=== PATIENT | male | born 1935 | race African-American/Black ===

== ENCOUNTER 2018-05-21 21:49 | Emergency (ER) | payer MEDICARE, OTHER ==
[~2018-05-21] VITALS: Ht 163.8 cm; Wt 63.5 kg
[2018-05-21 22:30] VITALS: BP 99/70
[2018-05-21] MEDS ORDERED: Sodium Chloride 500ML 500 ML IV ONE (22:30)
[2018-05-21 22:59] LABS: BASOPHILS % (AUTO) 0.4 % (0.0-2.0); EOSINOPHILS % (AUTO) 1.7 % (0.0-3.0); HEMATOCRIT 39.1 % (42.0-52.0); HEMOGLOBIN 13.4 G/DL (14.2-18.0); LYMPHOCYTES % (AUTO) 23.2 % (20.0-45.0); MEAN CORPUSCULAR VOLUME 88 FL (80-99); NEUTROPHILS % (AUTO) 65.7 % (45.0-75.0); PLATELET COUNT 232 K/UL (150-450); RED BLOOD COUNT 4.43 M/UL (4.70-6.10); RED CELL DISTRIBUTION WIDTH 11.3 % (11.6-14.8); WHITE BLOOD COUNT 5.3 K/UL (4.8-10.8)
[2018-05-21 23:08] LABS: ANION GAP 6 mmol/L (5-15); BLOOD UREA NITROGEN 23 mg/dL (7-18); CALCIUM 9.5 MG/DL (8.5-10.1); CARBON DIOXIDE 28 MMOL/L (21-32); CHLORIDE 104 MMOL/L (98-107); CREATININE 1.2 MG/DL (0.55-1.30); POTASSIUM 3.5 MMOL/L (3.5-5.1); SODIUM 138 MMOL/L (136-145)
[2018-05-21 23:18] LABS: ALANINE AMINOTRANSFERASE 35 U/L (12-78); ALBUMIN 3.6 G/DL (3.4-5.0); ALBUMIN/GLOBULIN RATIO 1.1 (1.0-2.7); ALKALINE PHOSPHATASE 65 U/L (46-116); ASPARTATE AMINO TRANSFERASE 55 U/L (15-37)
[2018-05-21 23:32] LABS: APPEARANCE,URINE CLEAR; BILIRUBIN, URINE 1+ (NEGATIVE); GLUCOSE, URINE (UA) NEGATIVE (NEGATIVE); KETONES,URINE NEGATIVE (NEGATIVE); LEUKOCYTE ESTERASE ,URINE 1+ (NEGATIVE); NITRITE,URINE NEGATIVE (NEGATIVE); PH,URINE 5 (4.5-8.0); PROTEIN,URINE 1+ (NEGATIVE); UROBILINOGEN,URINE NORMAL MG/DL (0.0-1.0)
[2018-05-21 23:37] LABS: COLOR,URINE YELLOW
[2018-05-21] MEDS ORDERED: CEPHALEXIN500 MG ORAL (23:41)
[2018-05-22 00:05] VITALS: BP 150/70
[2018-05-22 00:07] VITALS: BP 150/70
--- NOTE | 2018-05-22 00:13 | Emergency Room Report ---
History of Present Illness General Chief Complaint: Dizziness Source: Patient, Medical Record Present Illness HPI They she is 82-year-old male brought in by family member after increased dizziness and lightheadedness. The patient prior history of hypertension. He had been taking a alpha blockers for his prostate as well as beta barrett for for hypertension. The patient was noted to have increased dizziness with standing. He denied chest discomfort. He had not been having any fever. He reports having normal urination but it been having increased hesitancy. Allergies: Coded Allergies: No Known Allergies (Unverified , 05/21/18) Patient History Past Medical History: see triage record Reviewed Nursing Documentation: PMH: Agreed; PSxH: Agreed Nursing Documentation-PMH Past Medical History: No History, Except For Hx Hypertension: Yes Hx Diabetes: No Review of Systems All Other Systems: negative except mentioned in HPI Physical Exam Vital Signs Date Time Temp Pulse Resp B/P (MAP) Pulse Ox O2 Delivery O2 Flow Rate FiO2 05/21/18 21:54 97.6 76 19 99/70 95 Room Air 97.5 Sp02 EP Interpretation: reviewed, normal General Appearance: normal inspection, well appearing, no apparent distress, alert, GCS 15, non-toxic Head: atraumatic ENT: normal ENT inspection, hearing grossly normal, normal voice Neck: normal inspection, full range of motion, supple, no bony tend Respiratory: normal inspection, lungs clear, normal breath sounds, no respiratory distress, no retraction, no wheezing Cardiovascular #1: regular rate, rhythm, no edema Gastrointestinal: normal inspection, normal bowel sounds, non tender, soft, no guarding, no hernia Genitourinary: no CVA tenderness Musculoskeletal: normal inspection, back normal, normal range of motion Neurologic: normal inspection, alert, oriented x3, responsive, bundle wrapper III-XII nml as tested, speech normal Psychiatric: normal inspection, judgement/insight normal, mood/affect normal Skin: normal inspection, normal color, no rash Medical Decision Making Diagnostic Impression: Primary Impression: Urinary tract infection ER Course Patient presented for syncope. Differential diagnosis included but was not limited to arrhythmia, orthostatic hypotension, hypovolemia, vasovagal, anemia among others. Labs Test 05/21/18 22:45 05/21/18 23:23 White Blood Count 5.3 K/UL (4.8-10.8) Red Blood Count 4.43 M/UL (4.70-6.10) Hemoglobin 13.4 G/DL (14.2-18.0) Hematocrit 39.1 % (42.0-52.0) Mean Corpuscular Volume 88 FL (80-99) Mean Corpuscular Hemoglobin 30.3 PG (27.0-31.0) Mean Corpuscular Hemoglobin Concent 34.3 G/DL (32.0-36.0) Red Cell Distribution Width 11.3 % (11.6-14.8) Platelet Count 232 K/UL (150-450) Mean Platelet Volume 7.6 FL (6.5-10.1) Neutrophils (%) (Auto) 65.7 % (45.0-75.0) Lymphocytes (%) (Auto) 23.2 % (20.0-45.0) Monocytes (%) (Auto) 9.0 % (1.0-10.0) Eosinophils (%) (Auto) 1.7 % (0.0-3.0) Basophils (%) (Auto) 0.4 % (0.0-2.0) Sodium Level 138 MMOL/L (136-145) Potassium Level 3.5 MMOL/L (3.5-5.1) Chloride Level 104 MMOL/L (98-107) Carbon Dioxide Level 28 MMOL/L (21-32) Anion Gap 6 mmol/L (5-15) Blood Urea Nitrogen 23 mg/dL (7-18) Creatinine 1.2 MG/DL (0.55-1.30) Estimat Glomerular Filtration Rate mL/min (>60) Glucose Level 90 MG/DL (74-106) Calcium Level 9.5 MG/DL (8.5-10.1) Total Bilirubin 1.0 MG/DL (0.2-1.0) Aspartate Amino Transf (AST/SGOT) 55 U/L (15-37) Alanine Aminotransferase (ALT/SGPT) 35 U/L (12-78) Alkaline Phosphatase 65 U/L (46-116) Troponin I 0.013 ng/mL (0.000-0.056) Total Protein 7.0 G/DL (6.4-8.2) Albumin 3.6 G/DL (3.4-5.0) Globulin 3.4 g/dL Albumin/Globulin Ratio 1.1 (1.0-2.7) Urine Color Yellow Urine Appearance Clear Urine pH 5 (4.5-8.0) Urine Specific [place] 1.020 (1.005-1.035) Urine Protein 1+ (NEGATIVE) Urine Glucose (UA) Negative (NEGATIVE) Urine Ketones Negative (NEGATIVE) Urine Blood 2+ (NEGATIVE) Urine Nitrite Negative (NEGATIVE) Urine Bilirubin 1+ (NEGATIVE) Urine Ictotest Positive (NEGATIVE) Urine Urobilinogen Normal MG/DL (0.0-1.0) Urine Leukocyte Esterase 1+ (NEGATIVE) Urine RBC 2-4 /HPF (0 - 0) Urine WBC 2-4 /HPF (0 - 0) Urine Squamous Epithelial Cells Few /LPF (NONE/OCC) Urine Bacteria Few /HPF (NONE) Urine Hyaline Casts 0-2 /LPF (NONE) Urine Mucus Few /LPF (NONE/OCC) EKG Diagnostic Results Rate: bradycardiac - 57 Rhythm: NSR ST Segments: no acute changes Last Vital Signs Date Time Temp Pulse Resp B/P (MAP) Pulse Ox O2 Delivery O2 Flow Rate FiO2 05/22/18 00:07 97.5 78 23 150/70 98 Room Air 97.5 Status: improved Disposition: HOME, SELF-CARE Condition: Stable Scripts Cephalexin* (KEFLEX*) 500 Mg Capsule 500 MG ORAL EVERY 6 HOURS, #28 CAP Prov: Noam Harris MD 05/21/18 Referrals: NOT CHOSEN [facility]/,REFERRING (PCP) Patient Instructions: Noam White MD May 22, 2018 00:13
--- NOTE | 2018-05-22 15:05 | Cardiology Report ---
APPROVED REPORT EKG Measurement Heart [id number] Sinus bradycardia Otherwise normal ECG
== END 2018-05-22 00:08 | disposition home or self-care (01) ==
LOC: EMR 22:28
DX: N39.0 Urinary tract infection, site not specified (principal); I10 Essential (primary) hypertension
CPT/HCPCS: 36415; 80053; 81003; 84484; 85025; 93005; 99284

== ENCOUNTER 2019-05-12 22:15 | Emergency (ER) | payer MEDICAID, MEDICARE ==
[~2019-05-12] VITALS: Ht 162.6 cm; Wt 63.5 kg
[~2019-05-12 22:15] MED LIST: CEPHALEXIN500 MG ORAL
[2019-05-12 22:35] VITALS: BP 139/78
--- NOTE | 2019-05-12 22:35 | NUR ---
ED Nurse Note: Patient walked into ED due to lower abdominal pain, states that his pain intermittently comes back and forth, started yesterday. Has hx of HTN and is non compliant with his medications. Alert and oriented, verbally responsive. Breathing even and unlabored. VSS.
[2019-05-12] MEDS ORDERED: Isovue-300 100ml vial INJ PRN (23:15)
[2019-05-12 23:32] LABS: BASOPHILS % (AUTO) 0.5 % (0.0-2.0); EOSINOPHILS % (AUTO) 0.4 % (0.0-3.0); HEMATOCRIT 39.3 % (42.0-52.0); HEMOGLOBIN 13.8 G/DL (14.2-18.0); LYMPHOCYTES % (AUTO) 12.6 % (20.0-45.0); MEAN CORPUSCULAR VOLUME 90 FL (80-99); MONOCYTES % (AUTO) 5.7 % (1.0-10.0); NEUTROPHILS % (AUTO) 80.8 % (45.0-75.0); PLATELET COUNT 291 K/UL (150-450); RED BLOOD COUNT 4.34 M/UL (4.70-6.10); RED CELL DISTRIBUTION WIDTH 11.6 % (11.6-14.8); WHITE BLOOD COUNT 10.9 K/UL (4.8-10.8)
[2019-05-12 23:43] LABS: ANION GAP 8 mmol/L (5-15); BLOOD UREA NITROGEN 17 mg/dL (7-18); CALCIUM 9.2 MG/DL (8.5-10.1); CARBON DIOXIDE 30 MMOL/L (21-32); CHLORIDE 105 MMOL/L (98-107); CREATININE 1.2 MG/DL (0.55-1.30); SODIUM 143 MMOL/L (136-145)
[2019-05-12 23:47] LABS: ALANINE AMINOTRANSFERASE 18 U/L (12-78); ALBUMIN 3.6 G/DL (3.4-5.0); ALKALINE PHOSPHATASE 69 U/L (46-116); ASPARTATE AMINO TRANSFERASE 19 U/L (15-37); BILIRUBIN,TOTAL 0.8 MG/DL (0.2-1.0)
[2019-05-13 00:11] LABS: APPEARANCE,URINE CLEAR; BILIRUBIN, URINE NEGATIVE (NEGATIVE); GLUCOSE, URINE (UA) NEGATIVE (NEGATIVE); KETONES,URINE NEGATIVE (NEGATIVE); LEUKOCYTE ESTERASE ,URINE 2+ (NEGATIVE); NITRITE,URINE NEGATIVE (NEGATIVE); PH,URINE 5 (4.5-8.0); PROTEIN,URINE 1+ (NEGATIVE); UROBILINOGEN,URINE NORMAL MG/DL (0.0-1.0)
[2019-05-13 00:16] LABS: COLOR,URINE YELLOW
--- NOTE | 2019-05-13 00:24 | NUR ---
ED Nurse Note: Went down for CT.
--- NOTE | 2019-05-13 00:45 | NUR ---
ED Nurse Note: Came back from CT.
[2019-05-13 01:08] VITALS: BP 140/81
--- NOTE | 2019-05-13 01:47 | Diagnostic Imaging Report ---
Indication: Abdominal pain Technique: Continuous helical transaxial imaging of the abdomen and pelvis was obtained from the lung bases to the pubic symphysis during intravenous contrast administration. Coronal 2-D reformats were also obtained. Study obtained in a Siemens sensation [address] Automatic Exposure Control was utilized. Total Dose length Product (DLP): 754.[address] Dose Index Volume (CTDIvol): 16.38 mGy Comparison: None Findings: There is mild posterior basal atelectasis and/or scarring. The anterior wall the stomach appears abnormal. While most of the stomach wall appears thickened, there is a area of the focal protuberance of the stomach lumen extending anteriorly which has a thin wall. This may be a large gastric diverticulum. Ulceration is a consideration as well as ulcerative tumor. The stomach is nondistended. No oral contrast was given. Further evaluation with the endoscopy is highly recommended. There is also reticulation involving the omentum and anterior aspect of the mesentery. This may be due to inflammation. There is no free air identified. There is no free fluid or abscess identified. Gallbladder is contracted. There is a large cyst in the left kidney measuring 7 cm. Bilateral smaller renal cysts are noted. There is a splenic cyst measuring 2.6 cm. Aortoiliac calcifications are present. The appendix is normal. There are diverticula within the colon. Gas pattern is nonobstructive. Gallbladder is contracted. The liver is unremarkable. Pancreas is unremarkable. Prostate is enlarged measuring 5.8 x 5.8 x 6.5 cm. There is narrowing of intervertebral discs and accompanying endplate osteophyte formation. Hypertrophied facet joints also demonstrated.. IMPRESSION: Abnormal appearance of the stomach with the prominent anterior thin-walled focus of either ulceration, gastric diverticulum or tumor suspected. Further evaluation of this is recommended with endoscopy. Thickening of the gastric wall also demonstrated elsewhere may be indicative of gastritis. No evidence of perforation. Mesenteric stranding involving the omentum, nonspecific but could be a sign of inflammation. Renal cysts. Splenic cyst Atherosclerotic vascular disease Basilar atelectasis and/or fibrosis. Diverticulosis of the colon. Prostate hypertrophy Spondylosis There is a significant discrepancy with the preliminary reading by statrad. The final results and recommendations were conveyed to the emergency department, Dr. Klein at 10:11 am, 05/13/19. The CT scanner at [facility] is accredited by the [employer] and the scans are performed using dose optimization techniques as appropriate to a performed exam including Automatic Exposure control.
[2019-05-13 03:10] VITALS: BP 138/70
--- NOTE | 2019-05-13 03:10 | NUR ---
ED Nurse Note: Patient seen sleeping in bed. Breathing even and unlabored. Afebrile. Denies any pain at this time. VSS. Family member at bedside.
[2019-05-13] MEDS ORDERED: AMLODIPINE BESY10 MG ORAL (03:25)
[2019-05-13] MEDS ORDERED: TERAZOSIN HCL1 MG ORAL (03:26)
--- NOTE | 2019-05-13 04:00 | Emergency Room Report ---
History of Present Illness General Chief Complaint: Abdominal Pain Source: Patient Present Illness HPI 83-year-old male presents ED for evaluation. Complaining of abdominal pain. Pain is epigastric, dull, 8 out of 10, nonradiating. Started yesterday. States it was worse initially but less at this time. Denies chest pain or shortness of breath. Denies fevers or chills. Denies diarrhea. Denies nausea or vomiting. No other aggravating relieving factors. Denies any other associated symptoms Allergies: Coded Allergies: No Known Allergies (Unverified , 05/21/18) Patient History Past Medical History: HTN, other - prostate ca Past Surgical History: none Pertinent Family History: none Social History: Denies: smoking, alcohol use, drug use Immunizations: UTD Reviewed Nursing Documentation: PMH: Agreed; PSxH: Agreed Nursing Documentation-PMH Past Medical History: No History, Except For Hx Hypertension: Yes Hx Diabetes: No Review of Systems All Other Systems: negative except mentioned in HPI Physical Exam Vital Signs Date Time Temp Pulse Resp B/P (MAP) Pulse Ox O2 Delivery O2 Flow Rate FiO2 05/12/19 22:28 98.6 76 18 148/89 (108) 98 Room Air Sp02 EP Interpretation: reviewed, normal General Appearance: no apparent distress, alert, GCS 15, non-toxic Head: normocephalic, atraumatic Eyes: bilateral eye normal inspection, bilateral eye PERRL ENT: hearing grossly normal, normal pharynx, no angioedema, normal voice Neck: full range of motion, supple/symm/no masses Respiratory: chest non-tender, lungs clear, normal breath sounds, speaking full sentences Cardiovascular #1: regular rate, rhythm, no edema Cardiovascular #2: 2+ carotid (R), 2+ carotid (L), 2+ radial (R), 2+ radial (L) , 2+ dorsalis pedis (R), 2+ dorsalis pedis (L) Gastrointestinal: normal bowel sounds, soft, non-distended, no guarding, no rebound, tenderness - epigastric Rectal: deferred Genitourinary: normal inspection, no CVA tenderness Musculoskeletal: back normal, gait/station normal, normal range of motion, non- tender Neurologic: alert, oriented x3, responsive, motor strength/tone normal, sensory intact, speech normal Psychiatric: judgement/insight normal, memory normal, mood/affect normal, no suicidal/homicidal ideation Reflexes: 3+ bicep (R), 3+ bicep (L), 3+ tricep (R), 3+ tricep (L), 3+ knee (R) , 3+ knee (L) Lymphatic: no adenopathy Medical Decision Making Diagnostic Impression: Primary Impression: Urinary tract infection Qualified Codes: N39.0 - Urinary tract infection, site not specified; R31.9 - Hematuria, unspecified Additional Impressions: Abdominal pain Qualified Codes: R10.13 - Epigastric pain H/O prostate cancer ER Course Hospital Course 83 yo M presents to ED c/o abd pain Differential diagnoses include: BPH, cystitis, pyelonephritis, kidney stone Clinical course 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 After initial history and physical I ordered labs, EKG, meds, CT scan Labs - no leukocytosis, Hb/Hct stable. electrolytes ok. UA + bacteria + blood CT abdomen and pelvis -haziness of the mesentery in the upper abdomen. Consideration for edema/ascites, gastritis, mesenteritis or possible carcinomatosis I discussed findings with patient and . There is a history of prostate cancer. high concern for Carcinomatosis. Currently awaiting treatment plan from PMD. no active chemo or radiation at this time Patient continues to have pain. Given age and comorbidities I do not believe patient can be safely discharged home at this time. Because of insurance patient will be transferred. abx given. I feel this is a highly complex case requiring extensive working including EKG/ Rhythm strip, Xray/CT/US, Blood/urine lab work, repeat exams while in ED, and administration of strong opiates/narcotics for pain control, admission to hospital or close patient follow up. Diagnosis - abdominal pain, UTI transferred in serious condition Labs Test 05/12/19 23:19 05/12/19 23:55 White Blood Count 10.9 K/UL (4.8-10.8) Red Blood Count 4.34 M/UL (4.70-6.10) Hemoglobin 13.8 G/DL (14.2-18.0) Hematocrit 39.3 % (42.0-52.0) Mean Corpuscular Volume 90 FL (80-99) Mean Corpuscular Hemoglobin 31.8 PG (27.0-31.0) Mean Corpuscular Hemoglobin Concent 35.1 G/DL (32.0-36.0) Red Cell Distribution Width 11.6 % (11.6-14.8) Platelet Count 291 K/UL (150-450) Mean Platelet Volume 6.5 FL (6.5-10.1) Neutrophils (%) (Auto) 80.8 % (45.0-75.0) Lymphocytes (%) (Auto) 12.6 % (20.0-45.0) Monocytes (%) (Auto) 5.7 % (1.0-10.0) Eosinophils (%) (Auto) 0.4 % (0.0-3.0) Basophils (%) (Auto) 0.5 % (0.0-2.0) Sodium Level 143 MMOL/L (136-145) Potassium Level 4.0 MMOL/L (3.5-5.1) Chloride Level 105 MMOL/L (98-107) Carbon Dioxide Level 30 MMOL/L (21-32) Anion Gap 8 mmol/L (5-15) Blood Urea Nitrogen 17 mg/dL (7-18) Creatinine 1.2 MG/DL (0.55-1.30) Estimat Glomerular Filtration Rate mL/min (>60) Glucose Level 123 MG/DL (74-106) Calcium Level 9.2 MG/DL (8.5-10.1) Total Bilirubin 0.8 MG/DL (0.2-1.0) Aspartate Amino Transf (AST/SGOT) 19 U/L (15-37) Alanine Aminotransferase (ALT/SGPT) 18 U/L (12-78) Alkaline Phosphatase 69 U/L (46-116) Troponin I 0.000 ng/mL (0.000-0.056) Total Protein 7.2 G/DL (6.4-8.2) Albumin 3.6 G/DL (3.4-5.0) Globulin 3.6 g/dL Albumin/Globulin Ratio 1.0 (1.0-2.7) Lipase 105 U/L (73-393) Urine Color Yellow Urine Appearance Clear Urine pH 5 (4.5-8.0) Urine Specific [place] 1.020 (1.005-1.035) Urine Protein 1+ (NEGATIVE) Urine Glucose (UA) Negative (NEGATIVE) Urine Ketones Negative (NEGATIVE) Urine Blood 4+ (NEGATIVE) Urine Nitrite Negative (NEGATIVE) Urine Bilirubin Negative (NEGATIVE) Urine Urobilinogen Normal MG/DL (0.0-1.0) Urine Leukocyte Esterase 2+ (NEGATIVE) Urine RBC 15-20 /HPF (0 - 0) Urine WBC 40-60 /HPF (0 - 0) Urine Squamous Epithelial Cells Few /LPF (NONE/OCC) Urine Bacteria Few /HPF (NONE) CT/MRI/US Diagnostic Results CT/MRI/US Diagnostic Results : Imaging Test Ordered: CT A/P Impression CT ABDOMEN + PELVIS With Contrast: Lower lungs: No acute findings. Liver: Unremarkable. Gallbladder: Unremarkable. Spleen, pancreas, and adrenal glands: No acute findings. Splenic cyst. Kidneys: No hydronephrosis or obstructive nephrolithiasis. Multiple cysts, largest measuring up to 7 cm in the left kidney. Bowel: No bowel obstruction. Colonic diverticulosis. Stomach wall appears somewhat thickened, correlate with gastritis. Appendix: No convincing appendicitis. Bladder: No bladder wall thickening. Pelvic organs: Severely enlarged. Vessels: No aortic aneurysm. Bones: No acute fracture. Peritoneal space: In the upper abdomen, there is diffuse haziness of the mesentery with some free fluid which may be related to edema ascites, gastritis, mesenteritis, or possible carcinomatosis (but no primary source is identified). Last Vital Signs Date Time Temp Pulse Resp B/P (MAP) Pulse Ox O2 Delivery O2 Flow Rate FiO2 05/13/19 03:10 98.2 80 18 138/70 99 Room Air Status: improved Disposition: [facility] Condition: Serious Referrals: [facility],REFERR[facility] (PCP) Pacheco Fitzgerald MD May 13, 2019 04:00
--- NOTE | 2019-05-13 04:01 | Emergency Room Report ---
Physical Exam Vital Signs Date Time Temp Pulse Resp B/P (MAP) Pulse Ox O2 Delivery O2 Flow Rate FiO2 05/12/19 22:28 98.6 76 18 148/89 (108) 98 Room Air Medical Decision Making Diagnostic Impression: Primary Impression: Urinary tract infection Qualified Codes: N39.0 - Urinary tract infection, site not specified; R31.9 - Hematuria, unspecified Additional Impressions: H/O prostate cancer Abdominal pain Qualified Codes: R10.13 - Epigastric pain EKG Diagnostic Results Rate: bradycardiac Rhythm: NSR ST Segments: no acute changes ASA given to the pt in ED: No Rhythm Strip Diag. Results EP Interpretation: yes Rhythm: NSR, no PVC's, no ectopy Last Vital Signs Date Time Temp Pulse Resp B/P (MAP) Pulse Ox O2 Delivery O2 Flow Rate FiO2 05/13/19 03:10 98.2 80 18 138/70 99 Room Air Status: improved Disposition: [facility] Condition: Serious Referrals: [facility]REFERR[facility] (PCP) Pacheco Fitzgerald MD May 13, 2019 04:01
[2019-05-13 05:50] VITALS: BP 136/80
[2019-05-13] MEDS ORDERED: cefTRIAXone 1 GM in NS 55 ML IVPB ONE (06:30)
[2019-05-13 07:16] VITALS: BP 145/72
--- NOTE | 2019-05-13 07:18 | NUR ---
ED Nurse Note: Patient transferred to [facility]. Report given to Catarino ELKINS. Patient was picked up by 2 EMT via gurney. Alert and oriented x4, verbally responsive. Was able to walk with assistance. With IV line 20g on right AC. Breathing even and unlabored. Afebrile. VSS. S/O made aware of the transfer.
--- NOTE | 2019-05-13 16:23 | Emergency Room Report ---
History of Present Illness General Chief Complaint: Abdominal Pain Source: Patient Present Illness Allergies: Coded Allergies: No Known Allergies (Unverified , 05/21/18) Nursing Documentation-PMH Past Medical History: No History, Except For Hx Hypertension: Yes Hx Diabetes: No Physical Exam Vital Signs Date Time Temp Pulse Resp B/P (MAP) Pulse Ox O2 Delivery O2 Flow Rate FiO2 05/12/19 22:28 98.6 76 18 148/89 (108) 98 Room Air Medical Decision Making Diagnostic Impression: Primary Impression: Urinary tract infection Qualified Codes: N39.0 - Urinary tract infection, site not specified; R31.9 - Hematuria, unspecified Additional Impressions: H/O prostate cancer Abdominal pain Qualified Codes: R10.13 - Epigastric pain ER Course I was notified by the radiologist of a discrepancy between the statrad read and his interpretation this morning. There is concern for either a diverticulum or mass in the stomach and recommended EGD to further investigate. I notified the patient's by telephone as the patient was not available. She stated that he was at [facility] right now undergoing an EGD. She will call for the official records. Last Vital Signs Date Time Temp Pulse Resp B/P (MAP) Pulse Ox O2 Delivery O2 Flow Rate FiO2 05/13/19 07:16 98.5 78 19 145/72 99 Room Air Disposition: SHORT-TERM HOSP Condition: Serious Referrals: [facility]ERR[facility] (PCP) Matt Klein MD May 13, 2019 16:23
--- NOTE | 2019-05-15 13:14 | Cardiology Report ---
APPROVED REPORT EKG Measurement Heart [id number] elevation, probably due to early repolarization Borderline ECG
== END 2019-05-13 07:16 | disposition short-term general hospital (02) ==
LOC: EMR 22:56
DX: N39.0 Urinary tract infection, site not specified (principal); I10 Essential (primary) hypertension; R10.13 Epigastric pain; Z85.46 Personal history of malignant neoplasm of prostate
CPT/HCPCS: 36415; 74177; 80053; 81003; 83690; 84484; 85025; 87086; 93005; 96365; 96375; 99284; J0696; J7040; Q9967; S0028